=== PATIENT | male | born 1970 | race Caucasian/White ===

== ENCOUNTER → 2019-04-03 | Outpatient (CLI) | payer BC ==
[2019-04-03 10:52] LABS: BASOPHILS % 0.7 % (0.0-2.0); EOSINOPHILS % 1.4 % (0.0-5.0); HEMATOCRIT. 45.8 % (42.0-52.0); HEMOGLOBIN. 15.6 g/dL (14.0-18.0); LYMPHOCYTES % 36.8 % (20.0-50.0); MEAN CORPUSCULAR HEMOGLOBIN 28.4 pg (28.0-32.0); MEAN CORPUSCULAR VOLUME 83.6 fL (80.0-94.0); MEAN PLATELET VOLUME 9.6 fl (7.4-10.4); MONOCYTES % 6.5 % (2.0-8.0); NEUTROPHILS % 54.6 % (40.0-76.0); PLATELET 212 x1000/uL (130-400); RED BLOOD CELL COUNT 5.48 mill/uL (4.7-6.1); RED CELL DISTRIBUTION WIDTH 13.5 % (11.6-14.6)
[2019-04-03 10:59] LABS: CHLORIDE 106 mEq/L (98-107)
[2019-04-03 11:05] LABS: LDL CHOLESTEROL 108 mg/dL (5-100)
[2019-04-03 11:07] LABS: HDL CHOLESTEROL 35 mg/dL (40-59)
[2019-04-03 11:20] LABS: FOLIC ACID (FOLATE) SERUM 11.9 ng/mL (>5.38)
== END | disposition home or self-care (01) ==
LOC: LAB 09:54
PROVIDERS: ATTEND Family Medicine
DX: Z00.01 Encounter for general adult medical examination with abnormal findings (principal); N63.11 Unspecified lump in the right breast, upper outer quadrant; R22.1 Localized swelling, mass and lump, neck; R53.83 Other fatigue
CPT/HCPCS: 36415; 80061; 82306; 82607; 82746; 83036; 84443

== ENCOUNTER → 2019-04-09 | Outpatient (CLI) | payer BC | END | disposition home or self-care (01) | LOC: US 09:19 | PROVIDERS: ATTEND Family Medicine | DX: N63.11 Unspecified lump in the right breast, upper outer quadrant (principal); R22.2 Localized swelling, mass and lump, trunk | CPT/HCPCS: 76641; 76705 ==

== ENCOUNTER → 2021-07-08 | Outpatient (CLI) | payer BC | END | disposition home or self-care (01) | LOC: RAD 08:15 | PROVIDERS: ATTEND Family Medicine | DX: S22.41XA Multiple fractures of ribs, right side, initial encounter for closed fracture (principal); X58.XXXA Exposure to other specified factors, initial encounter; Y93.89 Activity, other specified; Y92.89 Other specified places as the place of occurrence of the external cause; Y99.8 Other external cause status | CPT/HCPCS: 71101 ==

== ENCOUNTER → 2021-07-27 | Outpatient (CLI) | payer BC | END | disposition home or self-care (01) | LOC: RAD 08:17 | PROVIDERS: ATTEND Family Medicine | DX: M25.511 Pain in right shoulder (principal) | CPT/HCPCS: 73030 ==

== ENCOUNTER → 2021-09-16 | Outpatient (CLI) | payer BC ==
[2021-09-16 08:56] LABS: BASOPHILS % 0.5 % (0.0-2.0); EOSINOPHILS % 2.3 % (0.0-5.0); HEMATOCRIT. 42.2 % (42.0-52.0); HEMOGLOBIN. 14.5 g/dL (14.0-18.0); LYMPHOCYTES % 30.7 % (20.0-50.0); MEAN CORPUSCULAR HEMOGLOBIN 27.5 pg (28.0-32.0); MEAN CORPUSCULAR VOLUME 79.8 fL (80.0-94.0); MEAN PLATELET VOLUME 9.4 fl (7.4-10.4); MONOCYTES % 7.5 % (2.0-8.0); PLATELET 230 x1000/uL (130-400); RED BLOOD CELL COUNT 5.29 mill/uL (4.7-6.1)
[2021-09-16 09:05] LABS: CHLORIDE 109 mEq/L (98-107)
[2021-09-16 09:12] LABS: LDL CHOLESTEROL 114 mg/dL (5-100)
[2021-09-16 09:13] LABS: HDL CHOLESTEROL 41 mg/dL (40-59)
== END | disposition home or self-care (01) ==
LOC: LAB 08:17
PROVIDERS: ATTEND Family Medicine
DX: Z13.29 Encounter for screening for other suspected endocrine disorder (principal); E78.5 Hyperlipidemia, unspecified; E55.9 Vitamin D deficiency, unspecified
CPT/HCPCS: 36415; 80053; 80061; 82306; 83036; 85025

== ENCOUNTER → 2021-10-13 | Outpatient (CLI) | payer BC | END | disposition home or self-care (01) | LOC: MRI 09:38 | PROVIDERS: ATTEND Family Medicine | DX: M75.101 Unspecified rotator cuff tear or rupture of right shoulder, not specified as traumatic (principal); G89.29 Other chronic pain | CPT/HCPCS: 73221 ==

== ENCOUNTER → 2021-12-01 | Outpatient (CLI) | payer BC ==
[2021-12-01 08:52] LABS: CLARITY URINE CLEAR (CLEAR); COLOR URINE YELLOW (YELLOW); KETONES URINE TRACE (NEGATIVE); LEUKOCYTE ESTERASE URINE NEGATIVE (NEGATIVE); NITRITE URINE NEGATIVE (NEGATIVE); OCCULT BLOOD URINE NEGATIVE (NEGATIVE); PH URINE 5.5 (4.5-8.0); PROTEIN URINE NEGATIVE (NEGATIVE); SPECIFIC GRAVITY URINE 1.027 (1.005-1.030); UROBILINOGEN URINE 0.2 E.U./dL (0.2-1.0)
[2021-12-01 08:54] LABS: BASOPHILS % 0.6 % (0.0-2.0); EOSINOPHILS % 3.8 % (0.0-5.0); HEMATOCRIT. 44.1 % (42.0-52.0); HEMOGLOBIN. 14.8 g/dL (14.0-18.0); LYMPHOCYTES % 30.5 % (20.0-50.0); MEAN CORPUSCULAR HEMOGLOBIN 27.1 pg (28.0-32.0); MEAN CORPUSCULAR VOLUME 80.9 fL (80.0-94.0); MONOCYTES % 7.6 % (2.0-8.0); NEUTROPHILS % 57.5 % (40.0-76.0); PLATELET 222 x1000/uL (130-400); RED BLOOD CELL COUNT 5.46 mill/uL (4.7-6.1); RED CELL DISTRIBUTION WIDTH 14.1 % (11.6-14.6)
[2021-12-01 09:01] LABS: PARTIAL THROMBOPLASTIN TIME 28.2 sec (23.4-31.0); PROTHROMBIN TIME 10.5 sec (9.6-11.0)
[2021-12-01 09:07] LABS: CHLORIDE 110 mEq/L (98-107)
== END | disposition home or self-care (01) ==
LOC: LAB 08:01
PROVIDERS: ATTEND Family Medicine
DX: Z01.818 Encounter for other preprocedural examination (principal)
CPT/HCPCS: 36415; 71046; 80053; 81003; 85025; 93005

== ENCOUNTER → 2021-12-15 | Outpatient (CLI) | payer BC | END | disposition home or self-care (01) | LOC: LAB 12:18 | DX: Z01.812 Encounter for preprocedural laboratory examination (principal); Z20.822 Contact with and (suspected) exposure to COVID-19 | CPT/HCPCS: 87426; C9803 ==

== ENCOUNTER 2021-12-17 07:45 | Day surgery (SDC) | payer BC ==
[~2021-12-17] VITALS: Ht 181.6 cm; Wt 88.0 kg
[~2021-12-17 07:45] MED LIST: BUPIVACAINE HCL 0.5% (5MG/ML) 50ML ONE; EPINEPHRINE 1:1000 1 MG/ML AMP ONE; MORPHINE SULFATE/PF 1MG/ML 10ML AMP ONE
[2021-12-17] MEDS ORDERED: VANCOMYCIN HCL 1 GM/VIAL ONE (08:59)
[2021-12-17] MEDS ORDERED: ONDANSETRON HCL 4MG/2ML INJ ONE (09:39)
[2021-12-17] MEDS ORDERED: DEXAMETHASONE 4MG/ML 1ML VIAL ONE (09:39)
[2021-12-17] MEDS ORDERED: ROCURONIUM BROMIDE 10MG/ML VIAL 5ML IV ONE (09:39)
[2021-12-17] MEDS ORDERED: PROPOFOL 200MG/20ML VIAL IV ONE (09:40)
[2021-12-17] MEDS ORDERED: NEOSTIGMINE METHYLSULFATE 1MG/ML 10 ML VIAL ONE (09:40)
[2021-12-17] MEDS ORDERED: GLYCOPYRROLATE 0.2 MG/ML 2ML VIAL ONE ×2 (09:40)
[2021-12-17] MEDS ORDERED: MIDAZOLAM HCL 2 MG/2 ML VIAL ONE (09:41)
[2021-12-17] MEDS ORDERED: FENTANYL CITRATE/PF 50MCG/ML 2ML VIAL ONE (09:41)
[2021-12-17] MEDS ORDERED: HYDROMORPHONE HCL/PF 2MG/ML CPJ IV PRN (10:15)
[2021-12-17] MEDS ORDERED: LABETALOL 5MG/ML SYR 20 MG/4 ML SYRINGE IV PRN (10:15)
[2021-12-17] MEDS ORDERED: MEPERIDINE HCL/PF 25MG/ML CPJ IV PRN (10:15)
[2021-12-17] MEDS ORDERED: ONDANSETRON HCL 4MG/2ML INJ IV PRN ×2 (10:15→10:45)
[2021-12-17] MEDS ORDERED: ROPIVACAINE HCL 10MG/ML 20 ML VIAL EPI ONE (10:25)
[2021-12-17] MEDS ORDERED: HYDROCODONE/ACETAMINOPHEN 5/325MG TABLET PO PRN (10:45)
[2021-12-17] MEDS ORDERED: MORPHINE SULFATE 4 MG/ML CPJ (NOT FOR IM USE) IV PRN (10:45)
[2021-12-17] MEDS ORDERED: PHENYLEPHRINE HCL 10 MG/ML 1ML (IV VIAL) IV ONE (10:56)
[2021-12-17] MEDS ORDERED: LACTATED RINGERS 1,000 ML IV SCH (12:15)
== END 2021-12-17 13:00 | disposition home or self-care (01) ==
LOC: OR 07:45
DX: M75.41 Impingement syndrome of right shoulder (principal); M75.121 Complete rotator cuff tear or rupture of right shoulder, not specified as traumatic; I10 Essential (primary) hypertension; G89.29 Other chronic pain; Z98.890 Other specified postprocedural states; Z79.899 Other long term (current) drug therapy
CPT/HCPCS: 27826; 27827; J1100; J2250; J2370; J2405; J2704; J2710; J2795; J3010; J3490; J7120; J2274; J3370

== ENCOUNTER → 2022-12-13 | Outpatient (CLI) | payer BC ==
[2022-12-13 08:46] LABS: BASOPHILS % 0.7 % (0.0-2.0); EOSINOPHILS % 2.2 % (0.0-5.0); HEMATOCRIT. 45.6 % (42.0-52.0); HEMOGLOBIN. 15.5 g/dL (14.0-18.0); LYMPHOCYTES % 33.8 % (20.0-50.0); MEAN CORPUSCULAR HEMOGLOBIN 28.6 pg (28.0-32.0); MEAN CORPUSCULAR VOLUME 84.3 fL (80.0-94.0); MEAN PLATELET VOLUME 8.9 fl (7.4-10.4); MONOCYTES % 9.3 % (2.0-8.0); PLATELET 227 x1000/uL (130-400); RED BLOOD CELL COUNT 5.41 mill/uL (4.7-6.1); RED CELL DISTRIBUTION WIDTH 13.8 % (11.6-14.6)
[2022-12-13 08:55] LABS: CHLORIDE 109 mEq/L (98-107)
[2022-12-13 09:03] LABS: HDL CHOLESTEROL 47 mg/dL (40-59); LDL CHOLESTEROL 116 mg/dL (5-100)
[2022-12-13 13:25] LABS: PROSTRATE SPECIFIC AG TOTAL 0.44 ng/mL (0.0-4.0); TRIOIODOTHYRONINE TOTAL 1.31 ng/ml (0.60-1.81)
== END | disposition home or self-care (01) ==
LOC: LAB 08:21
DX: Z00.00 Encounter for general adult medical examination without abnormal findings (principal); Z12.5 Encounter for screening for malignant neoplasm of prostate
CPT/HCPCS: 36415; 80053; 80061; 83036; 84153; 84439; 84480; 85025; G0103

== ENCOUNTER → 2023-11-14 | Outpatient (CLI) | payer BC ==
[2023-11-14 09:34] LABS: BASOPHILS % 0.8 % (0.0-2.0); EOSINOPHILS % 1.7 % (0.0-5.0); HEMATOCRIT. 46.4 % (42.0-52.0); HEMOGLOBIN. 15.6 g/dL (14.0-18.0); LYMPHOCYTES % 36.1 % (20.0-50.0); MEAN CORPUSCULAR HEMOGLOBIN 28.2 pg (28.0-32.0); MEAN CORPUSCULAR HGB CONC 33.7 g/dL (31.0-37.0); MEAN CORPUSCULAR VOLUME 83.8 fL (80.0-94.0); MEAN PLATELET VOLUME 9.6 fl (7.4-10.4); MONOCYTES % 8.1 % (2.0-8.0); NEUTROPHILS % 53.3 % (40.0-76.0); PLATELET 236 x1000/uL (130-400); RED BLOOD CELL COUNT 5.54 mill/uL (4.7-6.1); RED CELL DISTRIBUTION WIDTH 13.8 % (11.6-14.6); WHITE BLOOD COUNT 4.3 x1000/uL (4.5-11.0)
[2023-11-14 09:40] LABS: CLARITY URINE CLEAR (CLEAR); COLOR URINE YELLOW (YELLOW); GLUCOSE URINE NEGATIVE (NEGATIVE); KETONES URINE NEGATIVE (NEGATIVE); LEUKOCYTE ESTERASE URINE NEGATIVE (NEGATIVE); NITRITE URINE NEGATIVE (NEGATIVE); OCCULT BLOOD URINE NEGATIVE (NEGATIVE); PROTEIN URINE NEGATIVE (NEGATIVE); SPECIFIC GRAVITY URINE 1.025 (1.005-1.030)
[2023-11-14 09:56] LABS: CHLORIDE 107 mEq/L (98-107); POTASSIUM 4.1 mEq/L (3.5-5.1); SODIUM 139 mEq/L (136-145)
[2023-11-14 09:58] LABS: CALCIUM 9.1 mg/dL (8.7-10.4); CARBON DIOXIDE 26 mEq/L (21-32)
[2023-11-14 10:03] LABS: CREATININE 0.9 mg/dL (0.6-1.3); GLUCOSE 96 mg/dL (70-105); T4 FREE 1.24 ng/dL (0.89-1.76); THYROID STIMULATING HORMONE 0.82 uIU/mL (0.55-4.78); TRIGLYCERIDE 139 mg/dL (0-150); UREA NITROGEN BLOOD 9 mg/dL (9-23)
[2023-11-14 10:04] LABS: LDL CHOLESTEROL 110 mg/dL (5-100)
[2023-11-14 10:05] LABS: ALANINE AMINOTRANSFERASE 22 IU/L (10-49); ASPARTATE AMINOTRANSFERASE 26 IU/L (<34); BILIRUBIN TOTAL 0.8 mg/dL (0.1-1.0); CHOLESTEROL 180 mg/dL (<200); HDL CHOLESTEROL 40 mg/dL (>55)
[2023-11-14 11:21] LABS: ERYTHROCYTE SEDIMENTATION RATE 2 mm/hr (0-20)
[2023-11-14 11:28] LABS: FOLIC ACID (FOLATE) SERUM 13.57 ng/mL (>5.38); VITAMIN B12 SERUM 145 pg/mL (211-911)
[2023-11-15 13:10] LABS: RF PROFILE < 10.0 IU/mL (<14.0)
[2023-11-15 15:07] LABS: ANTI-NUCLEAR ANTIBODIES DIRECT Negative (Negative)
[2023-11-16 09:07] LABS: VITAMIN D 25-OH 30.2 ng/mL (30.0-100.0)
[2023-11-16 13:07] LABS: CCP IgG/IgA PROFILE 5 units (0-19); INTRINSIC FACTOR BLOCKING ABS 1.1 AU/mL (0.0-1.1)
[2023-11-19 13:10] LABS: ANTI-PARIETAL CELL AB 1.5 Units (0.0-20.0)
[2023-11-21 07:10] LABS: METHYLMALONIC ACID 128 nmol/L (0-378)
== END | disposition home or self-care (01) ==
LOC: LAB 08:19
PROVIDERS: ATTEND Internal Medicine Endocrinology, Diabetes & Metabolism
DX: Z13.9 Encounter for screening, unspecified (principal); E55.9 Vitamin D deficiency, unspecified; R41.3 Other amnesia; E78.5 Hyperlipidemia, unspecified; E53.8 Deficiency of other specified B group vitamins
CPT/HCPCS: 36415; 80053; 80061; 81003; 82306; 82607; 82746; 83036; 83921; 84153; 84439; 84443; 85025; 85651; 86038; 86200; 86340; 86431

== ENCOUNTER 2025-02-15 06:57 | Inpatient (IN) | payer BC ==
[~2025-02-15] VITALS: Ht 180.3 cm; Wt 90.1 kg
[2025-02-15] VITALS (7 sets, daily range): BP systolic 135–156; BP diastolic 93–102; PULSE 93–100; RESP 18–21; TEMP 36.2–37.3; O2SAT 96–100
[2025-02-15] MEDS: MORPHINE SULFATE 4 MG/ML INJ (FOR IV/IM USE) IV ONE ×2 (07:36→09:01)
[2025-02-15] MEDS: ONDANSETRON HCL 4MG/2ML INJ IV ONE (07:36)
[2025-02-15] MEDS: LACTATED RINGERS 1,000 ML IV SCH ×2 (07:36→14:41)
[2025-02-15 07:40] LABS: BASOPHILS % 0.5 % (0.0-2.0); EOSINOPHILS % 0.6 % (0.0-5.0); HEMATOCRIT. 47.0 % (42.0-52.0); HEMOGLOBIN. 16.0 g/dL (14.0-18.0); LYMPHOCYTES % 30.0 % (20.0-50.0); MEAN PLATELET VOLUME 9.4 fl (7.4-10.4); MONOCYTES % 6.0 % (2.0-8.0); NEUTROPHILS % 62.9 % (40.0-76.0); PLATELET 239 x1000/uL (130-400); RED BLOOD CELL COUNT 5.64 mill/uL (4.7-6.1); RED CELL DISTRIBUTION WIDTH 13.5 % (11.6-14.6)
[2025-02-15 08:11] LABS: TROPONIN I HIGH SENSITIVITY < 4 ng/L (3.0-53)
[2025-02-15 08:13] LABS: CREATININE 1.0 mg/dL (0.6-1.3); UREA NITROGEN BLOOD 13 mg/dL (9-23)
[2025-02-15 08:15] LABS: ASPARTATE AMINOTRANSFERASE 31 IU/L (<34); BILIRUBIN DIRECT 0.1 mg/dL (<=3.0)
[2025-02-15 08:16] LABS: BILIRUBIN TOTAL 0.7 mg/dL (0.1-1.0); PROTEIN TOTAL 7.7 g/dL (6.0-8.3)
[2025-02-15] MEDS: KCL 20MEQ/100ML PREMIX 100 ML IV SCH ×2 (09:01→13:46)
[2025-02-15] MEDS: MAGNESIUM 2 G PREMIX 50 ML IV ONE (10:29)
[2025-02-15] MEDS ORDERED: PANTOPRAZOLE SODIUM 40 MG/VIAL IV NR (12:15)
[2025-02-15] MEDS ORDERED: GUAIFENESIN 200MG/10ML SUGAR FREE UDC PO PRN (12:30)
[2025-02-15] MEDS ORDERED: ACETAMINOPHEN 325MG TABLET PO PRN (12:30)
[2025-02-15] MEDS ORDERED: DOCUSATE SODIUM 100MG CAPSULE PO PRN (12:30)
[2025-02-15] MEDS ORDERED: IPRATROPIUM/ALBUTEROL 0.5-3(2.5)MG/3ML NEB HHN PRN (12:30)
[2025-02-15] MEDS ORDERED: DEXTROSE 50% WATER 50ML SYRINGE IV PRN (12:30)
[2025-02-15] MEDS: BLOOD SUGAR DIAGNOSTIC STRIP TEST SCH (13:00)
[2025-02-15 13:27] LABS: PHOSPHORUS 1.3 mg/dL (2.5-4.9); TROPONIN I HIGH SENSITIVITY 5 ng/L (3.0-53)
[2025-02-15 14:28] LABS: BG BASE EXCESS -5.8 mmol/L (-2.0-3.0); BG CARBOXYHEMOGLOBIN 0.7 % (0.5-1.5); BG DEOXYHEMOGLOBIN 3.3 % (0.0-5.0); BG FRACTION INSPIRED OXYGEN 21; BG HCO3 ACT 18.5 mmol/L (21.0-28.0); BG METHEMOGLOBIN 0.2 % (0.5-1.5); BG OXYGEN SATURATION 96.7 % (94.0-98.0); BG OXYHEMOGLOBIN 95.8 % (94.0-98.0); BG PCO2 33.5 mmHg (35.0-48.0); BG PH 7.360 (7.350-7.450); BG PO2 88.8 mmHg (83.0-108.0); BG SAMPLE SITE RIGHT RADIAL; BG TOTAL HEMOGLOBIN 16.8 g/dL (13.5-17.5); BG VENT MODE ROOM AIR
[2025-02-15] MEDS: PIPERACILLIN/TAZO 3.375G/50ML 50 ML IV SCH (16:49)
[2025-02-15] MEDS: PANTOPRAZOLE SODIUM 40 MG/VIAL IV SCH (16:50)
[2025-02-15] MEDS: POTASSIUM CHLORIDE 20MEQ TABLET SR PO SCH (16:55)
[2025-02-15] MEDS: IOHEXOL-300 100 ML BOTTLE ONE (17:46)
[2025-02-15] MEDS: ONDANSETRON HCL 4MG/2ML INJ IV PRN (17:50)
[2025-02-15] MEDS ORDERED: NALOXONE HCL 0.4MG/ML VIAL IV PRN (19:45)
[2025-02-15] MEDS: MORPHINE SULFATE 2 MG/ML INJ (NOT FOR IM USE) IV PRN (20:05)
[2025-02-16] VITALS (14 sets, daily range): BP systolic 140–173; BP diastolic 80–113; PULSE 87–119; RESP 14–23; TEMP 36.3–37.4; O2SAT 92–99
[2025-02-16] MEDS: ACETAMINOPHEN 325MG TABLET PO PRN (00:14)
[2025-02-16 07:22] LABS: T4 FREE 1.28 ng/dL (0.89-1.76)
[2025-02-16 07:26] LABS: CREATININE 0.8 mg/dL (0.6-1.3); TRIGLYCERIDE 73 mg/dL (0-150); UREA NITROGEN BLOOD 12 mg/dL (9-23)
[2025-02-16 07:27] LABS: LDL CHOLESTEROL 110 mg/dL (5-100)
[2025-02-16 08:20] LABS: BASOPHILS % 0.0 % (0.0-2.0); EOSINOPHILS % 0.0 % (0.0-5.0); HEMATOCRIT. 46.8 % (42.0-52.0); HEMOGLOBIN. 15.5 g/dL (14.0-18.0); LYMPHOCYTES % 7.1 % (20.0-50.0); MEAN PLATELET VOLUME 9.8 fl (7.4-10.4); MONOCYTES % 8.7 % (2.0-8.0); NEUTROPHILS % 84.2 % (40.0-76.0); PLATELET 206 x1000/uL (130-400); RED BLOOD CELL COUNT 5.65 mill/uL (4.7-6.1); RED CELL DISTRIBUTION WIDTH 13.7 % (11.6-14.6)
[2025-02-16] MEDS: MORPHINE SULFATE 2 MG/ML INJ (NOT FOR IM USE) IV PRN (14:25)
[2025-02-16] MEDS: PANTOPRAZOLE SODIUM 40 MG/VIAL IV SCH (14:30)
[2025-02-16] MEDS: CLONIDINE 0.1MG TABLET PO PRN (15:42)
[2025-02-16] MEDS: LACTULOSE 20G/30ML UDC PO SCH (18:03)
[2025-02-16] MEDS: SUCRALFATE 1G TABLET PO SCH (18:04)
[2025-02-16] MEDS: METOCLOPRAMIDE HCL 10MG/2ML VIAL IV SCH (18:04)
[2025-02-16] MEDS: PANTOPRAZOLE SODIUM 40 MG/VIAL IV NR (18:04)
[2025-02-16] MEDS: POTASSIUM PHOSPHATE 15 MMOL in DEXT 5% WATER 250 ML IV NR (20:15)
[2025-02-16] MEDS: MORPHINE SULFATE 2 MG/ML INJ (NOT FOR IM USE) IV NR (20:58)
[2025-02-17] VITALS (15 sets, daily range): BP systolic 125–154; BP diastolic 81–112; PULSE 96–119; RESP 16–21; TEMP 36.2–36.8; O2SAT 91–97
[2025-02-17 01:26] LABS: CREATININE 0.8 mg/dL (0.6-1.3); UREA NITROGEN BLOOD 11 mg/dL (9-23)
[2025-02-17] MEDS: MORPHINE SULFATE 2 MG/ML INJ (NOT FOR IM USE) IV PRN (05:24)
[2025-02-17 06:18] LABS: PHOSPHORUS 1.8 mg/dL (2.5-4.9)
[2025-02-17 06:53] LABS: PLATELET 190 x1000/uL (130-400); RED BLOOD CELL COUNT 5.32 mill/uL (4.7-6.1); RED CELL DISTRIBUTION WIDTH 13.8 % (11.6-14.6)
[2025-02-17] MEDS: PANTOPRAZOLE SODIUM 40 MG/VIAL IV SCH (08:42)
[2025-02-17] MEDS: MAGNESIUM/ALUMINUM HYDROXIDE/SIMETHICONE 30ML UDC PO PRN (14:22)
[2025-02-17 16:49] LABS: CLARITY URINE CLEAR (CLEAR); COLOR URINE YELLOW (YELLOW); GLUCOSE URINE NEGATIVE (NEGATIVE); KETONES URINE 1+ (NEGATIVE); LEUKOCYTE ESTERASE URINE NEGATIVE (NEGATIVE); NITRITE URINE NEGATIVE (NEGATIVE); OCCULT BLOOD URINE 1+ (NEGATIVE); PH URINE 6.5 (4.5-8.0); PROTEIN URINE 1+ (NEGATIVE); SPECIFIC GRAVITY URINE 1.021 (1.005-1.030); UROBILINOGEN URINE 1.0 E.U./dL (0.2-1.0)
[2025-02-17] MEDS: POLYETHYLENE GLYCOL 3350 (17GM) 1 DOSE PACK PO SCH (16:56)
[2025-02-17 17:01] LABS: BACTERIA URINE RARE; SQUAMOUS EPITHELIAL CELL URINE RARE /lpf (RARE/1+); WBC URINE 0-2 /hpf (0-2)
[2025-02-17] MEDS: ATORVASTATIN CALCIUM 40MG TABLET PO SCH (20:23)
[2025-02-18] VITALS: BP 129/85; PULSE 90; RESP 20; TEMP 37.1; O2SAT 96
[2025-02-18 04:00] VITALS: BP 149/109; PULSE 101; RESP 26; TEMP 37.3; O2SAT 95
[2025-02-18 06:06] LABS: CREATININE 0.7 mg/dL (0.6-1.3)
[2025-02-18 06:07] LABS: UREA NITROGEN BLOOD 13 mg/dL (9-23)
[2025-02-18 06:28] LABS: PLATELET 185 x1000/uL (130-400); RED BLOOD CELL COUNT 5.13 mill/uL (4.7-6.1); RED CELL DISTRIBUTION WIDTH 13.6 % (11.6-14.6)
[2025-02-18 08:27] VITALS: BP 152/105; PULSE 99; RESP 21; TEMP 36.9; O2SAT 95
[2025-02-18 10:00] VITALS: BP 148/106; PULSE 99; RESP 24; O2SAT 96
[2025-02-18 12:00] VITALS: BP 156/100; PULSE 105; RESP 26; TEMP 36.4; O2SAT 94
[2025-02-18] MEDS ORDERED: LIP40 PO (12:39)
[2025-02-18] MEDS ORDERED: SUCR1TAB PO (12:39)
[2025-02-18] MEDS ORDERED: PROT40 PO (12:39)
[2025-02-18] MEDS ORDERED: LOSA25TA26 PO (12:39)
[2025-02-18] MEDS: LOSARTAN 25 MG TABLET PO SCH (13:00)
[2025-02-18 14:49] VITALS: BP 121/104; PULSE 105; RESP 15; TEMP 97.5
== END 2025-02-18 15:40 | disposition home or self-care (01) | DRG 392 ==
LOC: ER 06:57 → EDBEDREQ 09:11 → EDBEDREQSVC 09:11 → EDBEDREQTM 09:11 → EDBEDREQ 09:12 → ENRESERV 12:51 → 5EST 13:59
PROVIDERS: ADMIT Internal Medicine; ATTEND Internal Medicine
DX: K29.70 Gastritis, unspecified, without bleeding (principal); E87.20 Acidosis, unspecified; R73.9 Hyperglycemia, unspecified; E87.6 Hypokalemia; K76.0 Fatty (change of) liver, not elsewhere classified; K21.9 Gastro-esophageal reflux disease without esophagitis; I10 Essential (primary) hypertension; E05.90 Thyrotoxicosis, unspecified without thyrotoxic crisis or storm; E83.39 Other disorders of phosphorus metabolism; K56.41 Fecal impaction; R16.2 Hepatomegaly with splenomegaly, not elsewhere classified; F10.90 Alcohol use, unspecified, uncomplicated; Y90.9 Presence of alcohol in blood, level not specified
CPT/HCPCS: 36415; 36600; 74018; 74177; 76700; 80048; 80061; 80076; 81003; 82010; 82375; 82805; 82962; 83036; 83605; 83735; 84100; 84132; 84145; 84439; 84443; 84484; 85025; 85027; 93005; 99291; J2270; J2405; J2470; J2543; J2765; J3475; J3480; J3490; J7060; Q9967

== ENCOUNTER → 2025-02-24 | Outpatient (CLI) | payer BC ==
[~2025-02-24] MED LIST changes: -BUPIVACAINE HCL 0.5% (5MG/ML) 50ML ONE; -EPINEPHRINE 1:1000 1 MG/ML AMP ONE; +LIP40 PO; +LOSA25TA26 PO; -MORPHINE SULFATE/PF 1MG/ML 10ML AMP ONE; +PROT40 PO; +SUCR1TAB PO
[2025-02-24 09:57] LABS: BASOPHILS % 0.3 % (0.0-2.0); EOSINOPHILS % 0.3 % (0.0-5.0); HEMATOCRIT. 43.5 % (42.0-52.0); HEMOGLOBIN. 14.6 g/dL (14.0-18.0); LYMPHOCYTES % 13.0 % (20.0-50.0); MEAN PLATELET VOLUME 8.3 fl (7.4-10.4); MONOCYTES % 9.2 % (2.0-8.0); NEUTROPHILS % 77.2 % (40.0-76.0); PLATELET 380 x1000/uL (130-400); RED BLOOD CELL COUNT 5.24 mill/uL (4.7-6.1); RED CELL DISTRIBUTION WIDTH 13.1 % (11.6-14.6)
[2025-02-24 10:22] LABS: CREATININE 0.8 mg/dL (0.6-1.3); TRIGLYCERIDE 90 mg/dL (0-150); UREA NITROGEN BLOOD 10 mg/dL (9-23)
[2025-02-24 10:23] LABS: LDL CHOLESTEROL 35 mg/dL (5-100)
[2025-02-24 10:24] LABS: ASPARTATE AMINOTRANSFERASE 51 IU/L (<34); BILIRUBIN TOTAL 0.7 mg/dL (0.1-1.0); PROTEIN TOTAL 6.2 g/dL (6.0-8.3)
[2025-02-24 10:26] LABS: T4 FREE 1.78 ng/dL (0.89-1.76)
[2025-02-24 11:20] LABS: FOLIC ACID (FOLATE) SERUM 10.17 ng/mL (>5.38)
[2025-02-24 11:50] LABS: VITAMIN B12 SERUM > 2000 pg/mL (211-911)
[2025-02-26 09:07] LABS: ANTI-NUCLEAR ANTIBODIES DIRECT Negative (Negative); HBSAG SCREEN Negative (Negative); HEPATITIS A ANTIBODY TOTAL Positive (Negative); HEPATITIS C AB Non Reactive (Non Reactive); PROSTATE SPECIFIC AG TOTAL 0.8 ng/mL (0.0-4.0)
== END | disposition home or self-care (01) ==
LOC: LAB 08:37
PROVIDERS: ATTEND Internal Medicine Endocrinology, Diabetes & Metabolism
DX: E78.5 Hyperlipidemia, unspecified (principal); R73.9 Hyperglycemia, unspecified; K76.0 Fatty (change of) liver, not elsewhere classified
CPT/HCPCS: 36415; 80053; 80061; 82390; 82525; 82607; 82728; 82746; 83036; 83516; 83921; 84153; 84439; 84443; 85025; 86038; 86706; 86708; 86803; 87340

== ENCOUNTER → 2025-02-28 | Outpatient (CLI) | payer BC ==
[~2025-02-28] MED LIST changes: +GADOTERATE MEGLUMINE 5 MMOL/10 ML VIAL IV ONE
== END | disposition home or self-care (01) ==
LOC: MRI 07:43
PROVIDERS: ATTEND Internal Medicine Endocrinology, Diabetes & Metabolism
DX: D18.03 Hemangioma of intra-abdominal structures (principal); K76.89 Other specified diseases of liver; R10.9 Unspecified abdominal pain
CPT/HCPCS: 74183; A9577

== ENCOUNTER → 2025-03-31 | Outpatient (CLI) | payer BC ==
[~2025-03-31] MED LIST changes: -GADOTERATE MEGLUMINE 5 MMOL/10 ML VIAL IV ONE
[2025-03-31 09:08] LABS: BASOPHILS % 0.8 % (0.0-2.0); EOSINOPHILS % 1.3 % (0.0-5.0); HEMATOCRIT. 40.4 % (42.0-52.0); HEMOGLOBIN. 13.3 g/dL (14.0-18.0); LYMPHOCYTES % 50.0 % (20.0-50.0); MEAN PLATELET VOLUME 8.6 fl (7.4-10.4); MONOCYTES % 6.4 % (2.0-8.0); NEUTROPHILS % 41.5 % (40.0-76.0); PLATELET 252 x1000/uL (130-400); RED BLOOD CELL COUNT 4.95 mill/uL (4.7-6.1); RED CELL DISTRIBUTION WIDTH 14.2 % (11.6-14.6)
[2025-03-31 09:20] LABS: CREATININE 0.8 mg/dL (0.6-1.3)
[2025-03-31 09:21] LABS: LDL CHOLESTEROL 95 mg/dL (5-100); TRIGLYCERIDE 138 mg/dL (0-150); UREA NITROGEN BLOOD 11 mg/dL (9-23)
[2025-03-31 09:22] LABS: ASPARTATE AMINOTRANSFERASE 24 IU/L (<34)
[2025-03-31 09:23] LABS: BILIRUBIN TOTAL 0.8 mg/dL (0.1-1.0); PROTEIN TOTAL 6.7 g/dL (6.0-8.3)
[2025-03-31 09:26] LABS: T4 FREE 1.27 ng/dL (0.89-1.76)
[2025-04-01 09:09] LABS: ANTI-NUCLEAR ANTIBODIES DIRECT Negative (Negative); HEPATITIS A ANTIBODY TOTAL Positive (Negative); HEPATITIS C AB Non Reactive (Non Reactive); PROSTATE SPECIFIC AG TOTAL 0.7 ng/mL (0.0-4.0)
== END | disposition home or self-care (01) ==
LOC: LAB 08:11
PROVIDERS: ATTEND Internal Medicine Endocrinology, Diabetes & Metabolism
DX: E78.5 Hyperlipidemia, unspecified (principal); K76.0 Fatty (change of) liver, not elsewhere classified; R73.9 Hyperglycemia, unspecified; Z13.9 Encounter for screening, unspecified
CPT/HCPCS: 36415; 80053; 80061; 82390; 82525; 82728; 83036; 84153; 84439; 84443; 85025; 86038; 86706; 86708; 86803; 87340

== ENCOUNTER → 2025-05-02 | Outpatient (CLI) | payer BC ==
[2025-05-02 09:18] LABS: T4 FREE 1.36 ng/dL (0.89-1.76)
[2025-05-02 09:21] LABS: CORTISOL 8.3 ucg/dL
== END | disposition home or self-care (01) ==
LOC: LAB 08:15
PROVIDERS: ATTEND Internal Medicine Endocrinology, Diabetes & Metabolism
DX: E23.0 Hypopituitarism (principal); K76.0 Fatty (change of) liver, not elsewhere classified
CPT/HCPCS: 36415; 82024; 82533; 82728; 83001; 83002; 84146; 84402; 84403; 84439; 84443; 84481; 86708

== ENCOUNTER → 2025-06-09 | Outpatient (CLI) | payer BC | END | disposition home or self-care (01) | LOC: CARD 09:40 | PROVIDERS: ATTEND Psychiatry & Neurology Neurology | DX: R41.3 Other amnesia (principal); R40.0 Somnolence | CPT/HCPCS: 95816 ==

== ENCOUNTER → 2025-06-12 | Outpatient (CLI) | payer BC | END | disposition home or self-care (01) | LOC: MRI 09:40 | PROVIDERS: ATTEND Psychiatry & Neurology Neurology | DX: I67.82 Cerebral ischemia (principal); R90.89 Other abnormal findings on diagnostic imaging of central nervous system; R41.3 Other amnesia | CPT/HCPCS: 70551 ==